=== PATIENT | male | born 1970 | race American Indian/Alaskan Native ===

== ENCOUNTER 2016-08-25 03:32 | Emergency (ER) | payer OTHER ==
[2016-08-25] MEDS ORDERED: TYLENOL ONE (03:48)
[2016-08-25] MEDS ORDERED: TYLENOL PO ONE (03:49)
[2016-08-25 03:59] LABS: Hemoglobin 15.2 gm/dl (11.8-15.2); Mean Corpuscular HGB Conc 33 % (32-34); Mean Corpuscular Hemoglobin 27 pg (28-32); Mean Corpuscular Volume 82 fl (84-94); Platelet Count 242 K/mm3 (140-440); Red Blood Count 5.62 M/mm3 (3.65-5.03); Red Cell Distribution Width 13.8 % (13.2-15.2); White Blood Count 3.9 K/mm3 (4.5-11.0)
[2016-08-25 04:20] LABS: BUN/Creatinine Ratio 13.33; Blood Urea Nitrogen 12 mg/dL (9-20); Calcium 9.3 mg/dL (8.4-10.2); Carbon Dioxide 29 mmol/L (22-30); Chloride 98.1 mmol/L (98-107); Glucose 96 mg/dL (75-100); Sodium 138 mmol/L (137-145)
[2016-08-25 04:23] LABS: Anion Gap 15 mmol/L
[2016-08-25] MEDS ORDERED: NORCO 5/325 PO ONE (06:48)
--- NOTE | 2016-08-25 06:52 | Emergency Department Report ---
HPI - General Chief Complaint: Chest Pain Time Seen by Provider: 08/25/16 06:11 - HPI HPI: This is a 46-year-old Afro-[place] male presents to the emergency department with complaint of uncontrolled blood pressure, a 2 week history of headaches, and one day history of some midsternal chest tightness. Patient says that he is on amlodipine 5 mg twice a day and 25 mg of hydrochlorothiazide in the mornings. He just recently started the HCTZ. For the past 2 weeks he has been having these bad right-sided headaches. He only had 1 day in which she felt like there was some blurry vision but none currently. He denies any slurred speech, problems with sensation or movement or any other neurological deficits. He usually is able to take a Goody's powder and have the headaches resolve but more recently it has not helped. He says that he bought a blood pressure machine and has been checking it and his blood pressures have been running systolic 150-160 and diastolic 90-100. His only past medical history is hypertension. He denies any tobacco abuse or illicit drug use or abuse. Only occasional use of caffeinated products. Patient says that this morning, around 1 AM, he had some mild to moderate midsternal, nonradiating chest tightness that has since greatly improved. No shortness of breath, back pain, fever, diaphoresis, nausea or vomiting. No history of CO, CVA, PE/DVT. His primary care doctor is a Anselmo Hoffmann, whom he has spoken to regarding his blood pressure but has not been able to see in the office. ED Past Medical Hx - Past Medical History Previous Medical History?: Yes Hx Hypertension: Yes - Surgical History Past Surgical History?: No - Social History Smoking Status: Never Smoker Substance Use Type: None - Medications Home Medications: Home Medications Medication Instructions Recorded Confirmed Last Taken Type HYDROcodone/APAP 5-325 [[place] 1 each PO Q6HR PRN #12 tablet 08/25/16 Unknown Rx 5/325] Hydrochlorothiazide [HCTZ] 25 mg PO BID 08/25/16 08/25/16 08/24/16 History amLODIPine [Norvasc] 5 mg PO DAILY 08/25/16 08/25/16 08/24/16 History ED Review of Systems ROS: Stated complaint: TIGHTNESS OF CHEST,CHEST PAIN Other details as noted in HPI Comment: All other systems reviewed and negative Constitutional: denies: chills, fever Eyes: denies: eye pain, eye discharge, vision change ENT: denies: ear pain, throat pain Respiratory: denies: cough, shortness of breath, wheezing Cardiovascular: chest pain Gastrointestinal: denies: abdominal pain, nausea, diarrhea Genitourinary: denies: urgency, dysuria Musculoskeletal: denies: back pain, joint swelling, arthralgia Skin: denies: rash, lesions Neurological: headache. denies: weakness Physical Exam - Physical Exam Vital Signs: Vital Signs 08/25/16 08/25/16 08/25/16 03:35 03:53 06:22 Temperature 98.1 F 98 F Pulse Rate 60 62 Respiratory 18 16 Rate Blood Pressure 155/101 Blood Pressure 134/86 [Left] O2 Sat by Pulse 100 100 Oximetry Physical Exam: GENERAL: The patient is well-developed well-nourished. Patient does not appear in any acute distress. HEENT: Normocephalic. Atraumatic. Extraocular motions are intact. Patient has moist mucous membranes. Pupils equal reactive to light bilaterally. No nystagmus. NECK: Supple. Trachea is midline. CHEST/LUNGS: Clear to auscultation. There is no respiratory distress noted. HEART/CARDIOVASCULAR: Regular. There is no tachycardia. There is no gallop rub or murmur. ABDOMEN: Abdomen is soft, nontender. Patient has normal bowel sounds. There is no abdominal distention. SKIN: There is no rash. There is no edema. There is no diaphoresis. NEURO: The patient is awake, alert, and oriented. The patient is cooperative. The patient has no focal neurologic deficits. The patient has normal speech and gait. Cranial nerves II through XII grossly intact. MUSCULOSKELETAL: There is no tenderness or deformity. There is no limitation range of motion. There is no evidence of acute injury. ED Course Vital Signs 08/25/16 08/25/16 08/25/16 03:35 03:53 06:22 Temperature 98.1 F 98 F Pulse Rate 60 62 Respiratory 18 16 Rate Blood Pressure 155/101 Blood Pressure 134/86 [Left] O2 Sat by Pulse 100 100 Oximetry ED Medical Decision Making - Lab Data Result diagrams: 08/25/16 03:45 08/25/16 03:45 - EKG Data -: EKG Interpreted by Me EKG shows normal: sinus rhythm, axis, intervals, QRS complexes (RSR' pattern suggesting possible ventricular conduction delay), ST-T waves Rate: bradycardia (53 bpm) - EKG Data When compared to previous EKG there are: previous EKG unavailable Interpretation: other (sinus bradycardia, possible right ventricular conduction delay) - Radiology Data Radiology results: image reviewed interpreted by me: Chest x-ray did not show any acute process. Heart is normal shape and size. No effusions. No pneumothorax. No signs of pneumonia seen. - Medical Decision Making 46-year-old male presents to the emergency department with 2 week history of a right-sided headache intermittently and a one day history of some chest discomfort. Patient says the chest pain has pretty much resolved. Negative troponins 2 this far. He is a MARÍA score of 0 or 1. Low on the well's score criteria and negative for the pulmonary embolism rule out criteria. Chest x- ray does not show any acute process. EKG does not show any signs of ST elevation CO or ischemia. Regarding the patient's headache, he does not have any focal, motor or sensory deficits. No vision change complaints. Intact cranial nerves. The rest the patient's labs and unremarkable. Patient got some relief with his medications in the emergency department. He complains of some elevated blood pressure based on his home monitor but here his blood pressure is been mostly controlled other than some elevation in the diastolic numbers. A CT scan of the head without contrast was offered to rule out bleed, aneurysm or mass. However the patient has an appointment set up with his primary care doctor in a few days and would rather wait to see him and possibly get an outpatient MRI to avoid any radiation. Patient will be prescribed some pain medication and understands the sedating nature and side effects of these medications. He will return to the ER with any worsening of symptoms or any acute distress. - Differential Diagnosis tension headache, migraine headache, sinus headache, brain bleed, CO, Critical Care Time: No Critical care attestation.: If time is entered above; I have spent that time in minutes in the direct care of this critically ill patient, excluding procedure time. ED Disposition Clinical Impression: Headache Qualifiers: Headache type: unspecified Headache chronicity pattern: episodic headache Intractability: not intractable Qualified Code(s): R51 - Headache Chest pain Qualifiers: Chest pain type: unspecified Qualified Code(s): R07.9 - Chest pain, unspecified Disposition: DISCHARGED TO HOME OR SELFCARE Is pt being admited?: No Does the pt Need Aspirin: No Condition: Stable Instructions: Chest Pain (ED), Acute Headache (ED) Additional Instructions: Please follow-up with your primary care doctor on as previously scheduled. Return to the emergency department with any worsening of your symptoms or any acute distress. You've been prescribed a medication that is sedating. Therefore this medication cannot be mixed with alcohol, or taken prior to driving, working, or being responsible for children. Prescriptions: HYDROcodone/APAP 5-325 [[place] 5/325] 1 each PO Q6HR PRN #12 tablet PRN Reason: Pain Referrals: PRIMARY CARE, [Primary Care Provider] - 3-5 Days Time of Disposition: 08:40
--- NOTE | 2016-08-25 06:53 | XRay Report ---
FINAL REPORT EXAM: XR CHEST 1V AP HISTORY: CP TECHNIQUE: Single frontal view of the chest PRIORS: None FINDINGS: Lungs are clear. Heart size is normal. Normal pulmonary vasculature. No effusion or pneumothorax. IMPRESSION: 1. No acute finding.
[2016-08-25 07:12] LABS: Blastocytes % (Manual) 0 %
[2016-08-25 07:20] LABS: Basophils % (Manual) 0 % (0.0-1.8); Eosinophils % (Manual) 0 % (0.0-4.3)
[2016-08-25 07:21] LABS: Anisocytosis 1+; Diff Status Complete; Large Platelets Few
[2016-08-25] MEDS ORDERED: ZOFRAN ODT PO ONE (07:42)
[2016-08-25] MEDS ORDERED: MORPHINE IM ONE (07:42)
[2016-08-25 08:49] VITALS: BP 129/99
== END 2016-08-25 08:50 | disposition home or self-care (01) ==
LOC: ED 03:32
DX: R51 Headache (principal); R07.89 Other chest pain; I10 Essential (primary) hypertension
CPT/HCPCS: 36415; 71010; 80048; 84443; 84484; 85007; 85025; 93005; 93010; 96372; 99285; J2270; Q0162